=== PATIENT | female | born 1975 | race Asian ===

== ENCOUNTER 2021-08-02 19:58 | Emergency (ER) | payer BC, SELFPAY ==
--- NOTE | ~2021-08-02 | XR_ITS ---
XR chest 2V DATE: 08/02/2021 20:45 INDICATION: Generalized chest pain and palpitations for one week TECHNIQUE: PA and lateral views COMPARISON: 03/01/2017 CT pulmonary scan FINDINGS: Normal heart size. No hilar or mediastinal enlargement. No pulmonary infiltrate or consolid ation, pleural effusion or pulmonary vascular congestion or pneumothorax. Mild thoracic dextroscoliosis. IMPRESSION: No active cardiopulmonary disease Reviewed, dictated and finalized at location [facility].
[2021-08-02 20:08] VITALS: BP 162/88; PULSE 101; RESP 16; TEMP 37; O2SAT 96
--- NOTE | 2021-08-02 20:11 | ECG_ITS ---
Measurements Intervals [place] Rate: 103 P: 40 VT: 159 QRS: 7 QRSD: 97 T: 33 QT: 316 QTc: 416 Interpretive Statements SINUS TACHYCARDIA LOW QRS VOLTAGE IN PRECORDIAL LEADS [QRS DEFLECTION < 1.0 mV IN CHEST LEADS] BORDERLINE ECG NO PREVIOUS ECG AVAILABLE FOR COMPARISON Electronically Signed On 08-03-2021 11:20:36 CDT by Antoni Biggs M.D.
[2021-08-02 20:15] VITALS: BP 155/95; PULSE 100; RESP 24; O2SAT 100; O2SAT 99
[2021-08-02 20:29] LABS: Glucose Point of Care 209 mg/dl (65-105)
[2021-08-02 20:32] LABS: Basophils Absolute Auto 0.1 K/mm3 (0.0-0.1); Basophils Percent Auto 0.4 % (0.2-1.2); Eosinophils Absolute Auto 0.3 K/mm3 (0-0.3); Eosinophils Percent Auto 2.1 % (0-4.4); Hematocrit 42.6 % (37.0-47.0); Hemoglobin 13.9 g/dL (12.0-15.0); Immature Granulocyte Absolute 0.06 K/mm3 (0.00-0.031); Immature Granulocyte Percent A 0.4 % (0-0.5); Lymphocytes Percent Auto 30.8 % (18.3-44.2); Mean Corpuscular HGB Conc 32.6 g/dl (32-36); Mean Corpuscular Hemoglobin 26.8 pg (26-34); Mean Corpuscular Volume 82.2 fl (80-100); Mean Platelet Volume 10.4 fl (7.4-10.4); Monocytes Absolute Auto 0.8 K/mm3 (0.1-0.6); Monocytes Percent Auto 5.9 % (2.6-8.5); Neutrophils Absolute Auto 8.2 K/mm3 (1.3-6.7); Neutrophils Percent Auto 60.4 % (45.5-73.1); Platelet Count Result 270 k/mm3 (150-375); Red Blood Count 5.18 M/mm3 (4.2-5.4); Red Cell Distribution Width 12.6 % (11.5-14.5); White Blood Count 13.6 K/mm3 (4.5-10.0)
[2021-08-02 20:43] LABS: Prothrombin Time 12.8 Seconds (11.1-14.7)
[2021-08-02 20:44] LABS: Alanine Aminotransferase 18 U/L (6-35); Albumin Level 4.1 g/dL (3.5-5.1); Alkaline Phosphatase 78 U/L (38-126); Anion Gap 8 mmol/L (8-16); Aspartate Amino Transferase 24 U/L (14-36); Bilirubin,Total 0.3 mg/dL (0.2-1.3); Blood Urea Nitrogen 12 mg/dL (7-17); Carbon Dioxide 24 mmol/L (22-30); Chloride 104 mmol/L (98-107); Estimated CRCL calculation 127 ml/min; Estimated Glomerular Filt Rate > 60; Glucose 193 mg/dL (65-110); Lipase 100 U/L (23-300); Partial Thromboplastin Time 28.1 SECONDS (22.3-36.8); Potassium 3.7 mmol/L (3.4-5.0); Sodium 136 mmol/L (137-145)
[2021-08-02 20:54] LABS: Troponin I < 0.012 ng/mL (0.000-0.034)
[2021-08-02] MEDS: SODIUM CHLORIDE 0.9% IV 1,000 ML 999 ML IV CONT (21:36)
[2021-08-02] MEDS: LORazepam INJ (*CRX) 2 MG/ML VIAL 0.5 MG IV PUSH (21:36)
--- NOTE | 2021-08-02 21:39 | ED.GENADULT ---
HPI - General Adult General Chief complaint: Chest Pain Stated complaint: chest pain, general unwell Time Seen by Provider: 08/02/21 20:12 History of Present Illness HPI narrative: Presents ER with multiple issues. Main complaint is chest pain left side near the clavicle. Intermittent over the last couple weeks and associated with some palpitations. Pain is spontaneous and not necessarily associated with a singular activity or motion. Patient reports that she has been unmedicated for her hyperthyroidism and diabetes over the last year. Reports she is just not gone to see her doctors and is not taking her medication. She decided to start taking her glimepiride over the last week. Patient is anxious and tearful. No runny nose or sore throat or productive cough. No hemoptysis. Denies any weight loss. No new edema in the legs. Related Data Home Medications Medication Instructions Recorded Confirmed glimepiride 2 mg tablet tablet 08/02/21 metformin 500 mg tablet,extended tablet PO 08/02/21 release 24 hr Allergies Allergy/AdvReac Type Severity Reaction Status Date / Time No Known Allergies Allergy Mild Verified 08/02/21 20:10 Review of Systems Review of Systems: All systems reviewed & are unremarkable except as noted in HPI and below Constitutional: Constitutional: Denies chills and Denies fever(s) Cardiovascular: Cardiovascular: Reports chest pain, Reports rapid heart rate and Denies radiating jaw, neck or arm pain Respiratory: Respiratory: Denies cough and Denies dyspnea Gastrointestinal: Gastrointestinal: Denies abdominal pain, Denies nausea and Denies vomiting Musculoskeletal: Musculoskeletal: Denies back pain and Denies muscle cramps Neurologic: Denies headache(s), Denies focal weakness and Denies numbness PMFSH Past Medical History Medical History (Updated 08/02/21 @ 22:53 by Cezar Yan MD) Anxiety Depression Hyperthyroidism Iron deficiency Surgical History Surgical History (Updated 08/02/21 @ 21:43 by Cezar Yan MD) No pertinent past surgical history Family History Family History (Updated 03/26/17 @ 21:49 by DOCTOR UNKNOWN) Father Hypertension Family history of heart disease in male family member before age 55 Other Family history of cardiovascular disease Family history of malignant neoplasm of cervix Social History Social History Smoking status: Light tobacco smoker Second hand tobacco smoke exposure: No Alcohol intake: never Exam Narrative: GENERAL: Anxious and tearful, well-nourished, and in no acute distress. HEAD: Normocephalic, atraumatic. EYES: PERRL and EOMI. CHEST: Clear to auscultation. No respiratory distress. HEART: Regular rate and rhythm. Normal peripheral pulses. ABDOMEN: Soft, nontender, nondistended. EXTREMITIES: Normal range of motion. No edema. SKIN: Warm, dry, no rash. NEURO: Alert and oriented x3. PSYCH: Normal mood and affect. Course Course Emergency Course: Labs consistent with uncontrolled hyperthyroidism per patient history. Will discharge with her home methimazole 5 mg. Recommend she go back to her [facility]. She is requesting a name of a new PCP which we will provide. Vital Signs Vital signs: Vital Signs Temperature 98.6 F 08/02/21 20:08 Pulse Rate 101 H 08/02/21 20:08 Respiratory Rate 16 08/02/21 20:08 Blood Pressure 162/88 H 08/02/21 20:08 Pulse Oximetry 96 08/02/21 20:08 Oxygen Delivery Room Air 08/02/21 20:08 Temperature 98.6 F 08/02/21 20:08 Pulse Rate 97 08/02/21 21:43 Respiratory Rate 23 H 08/02/21 21:43 Blood Pressure 127/76 08/02/21 21:43 Pulse Oximetry 99 08/02/21 21:43 Oxygen Delivery Room Air 08/02/21 20:15 Medical Decision Making Vital Signs Vital Signs: Vital Signs Temperature 98.6 F 08/02/21 20:08 Pulse Rate 101 H 08/02/21 20:08 Respiratory Rate 16 08/02/21 20:08 Blood Pressure 162/88 H 08/02/21 20:08 Pulse Oxi
[2021-08-02 21:43] VITALS: BP 127/76; PULSE 97; RESP 23; O2SAT 99
[2021-08-02 22:47] LABS: Thyroid Stimulating Hormone Reflex < 0.015 uIU/mL (0.465-4.68)
[2021-08-02 23:08] VITALS: BP 119/68; PULSE 93; RESP 22; O2SAT 99
[2021-08-02 23:12] LABS: Free T4 Free Thyroxine Reflex 1.65 ng/dL (0.78-2.19)
[2021-08-03 00:11] LABS: Total Triiodothyronine (T3) 2.48 NG/ML (0.97-1.69)
== END 2021-08-02 23:09 | disposition home or self-care (01) ==
PROVIDERS: Emergency Provider Emergency Medicine
DX: E05.90 Thyrotoxicosis, unspecified without thyrotoxic crisis or storm (principal); F41.9 Anxiety disorder, unspecified; E11.9 Type 2 diabetes mellitus without complications; E61.1 Iron deficiency; F17.200 Nicotine dependence, unspecified, uncomplicated; Z79.84 Long term (current) use of oral hypoglycemic drugs; R00.0 Tachycardia, unspecified
CPT/HCPCS: 36415; 71046; 80053; 82948; 83690; 84439; 84443; 84480; 84484; 85025; 85610; 85730; 93005; 96361; 96374; 99284; J2060; J7030

== ENCOUNTER 2022-02-25 05:26 | Emergency (ER) | payer BC, SELFPAY ==
--- NOTE | 2022-02-25 05:42 | PC.NURSE ---
Pt ambulatory to ED with multiple complaints. Pt states her thyroid feels swollen, which happens when she gets stressed, and is concerned her thyroid medicine needs to be adjusted. She has an appointment scheduled for 03/17 but did not call to reschedule to see her PCP sooner. She also c/o sulphur burps and reflux x1 month that she has tried to manage with diet change and OTC medications without improvement. She also c/o anxiety, stress, and low energy. Pt is tearful during exam. She requests medication to help with anxiety and something to help her sleep.
[2022-02-25] MEDS: BELLADONNA ALK/PHENOB ELIX 10 ML, MAG HYDROX/ALUMINUM HYD/SIMETH 30 ML, LIDOCAINE HCL 2... PO (05:54)
--- NOTE | 2022-02-25 06:18 | ED.GENADULT ---
HPI - General Adult General Chief complaint: Unspecified Stated complaint: throat pain, thyroid swollen? Time Seen by Provider: 02/25/22 05:37 History of Present Illness HPI narrative: This is a 46-year-old female with past medical history of anxiety, GERD and hypothyroidism, who presents to the emergency department complaining of anxiety, substernal burning and throat swelling. Patient states she has had several episodes of anxiety over the past several weeks, that have recently worsened. She states she is also had some sore throat and was evaluated at an outside urgent care where she was started on steroids. She states since taking the steroids she has felt her anxiety worsen. This is accompanied by throat swelling, which she has experienced with anxiety previously. She states she was tested for COVID, flu and strep, all of which were negative. She also complains of burning substernal pain, rated 3/10, consistent with acid reflux. Related Data Home Medications Medication Instructions Recorded Confirmed glimepiride 2 mg tablet tablet 08/02/21 metformin 500 mg tablet,extended tablet PO 08/02/21 release 24 hr Allergies Allergy/AdvReac Type Severity Reaction Status Date / Time No Known Allergies Allergy Mild Verified 02/25/22 07:26 Review of Systems Review of Systems: CONSTITUTIONAL: Denies fever, chills, or sweats. EYES: Denies visual changes, redness, or discharge. ENT: Sore throat, neck swelling denies rhinorrhea, congestion, or otalgia. CARDIOVASCULAR: Denies chest pain, palpitations, or edema. RESPIRATORY: Denies cough or dyspnea. GASTROINTESTINAL: Denies abdominal pain, nausea, vomiting, or diarrhea. GENITOURINARY: Denies dysuria or hematuria. SKIN: Denies rash or itching. MUSCULOSKELETAL: Denies back pain, joint pain, or myalgia. NEUROLOGIC: Denies headache, numbness, dizziness, or weakness. PSYCHIATRIC: Anxiety denies depression. [facility] Past Medical History Medical History Anxiety Depression Hyperthyroidism Iron deficiency Surgical History Surgical History No pertinent past surgical history Family History Family History Father Hypertension Family history of heart disease in male family member before age 55 Other Family history of cardiovascular disease Family history of malignant neoplasm of cervix Social History Social History Smoking status: Light tobacco smoker Second hand tobacco smoke exposure: No Alcohol intake: never Exam Narrative: GENERAL: Well-developed, well-nourished, appears anxious HEAD: Normocephalic, atraumatic. EYES: PERRLA and EOMI. ENT: Nares clear, no rhinorrhea or epistaxis. Mucous membranes moist. Oropharynx without tonsillar hypertrophy exudate or other lesions. NECK: Bilateral, symmetrical swelling of the neck consistent with thyroid hypertrophy, Supple. No adenopathy. No carotid bruits or JVD CHEST: Clear to auscultation. No respiratory distress. No wheezes rales or rhonchi HEART: Regular rate and rhythm. No murmur heard. Normal peripheral pulses. ABDOMEN: Soft, nontender, nondistended, normal active bowel sounds. EXTREMITIES: Normal range of motion. No edema. SKIN: Warm, dry, no rash. NEURO: No focal deficits. Alert and oriented x3. PSYCH: Normal mood and affect. Course Course Emergency Course: 07:30 - TSH elevated to 34 with T4 at 1, consistent with hypothyroidism. Paged the patient's client program manager, Dr. Tello at [facility] to facilitate follow up. On reevaluation, the patient states her pain is improving after GI cocktail. 08:30 - Discussed patient with her client program manager, Dr. Tello who recommends holding the methimazole and follow-up in the outpatient setting. Dr. Tello notes the patient has a history of Grave's disease. Discu
[2022-02-25] MEDS: FAMOTIDINE 20 MG TABLET PO (06:32)
--- NOTE | 2022-02-25 06:38 | PC.NURSE ---
Discussed things pt can do at home to manage her burps and reflux, such as clear liquids x24-48 hours, BRAT diet, food diary, not eating before bed. Also educated on ways to cope with her stress such as reading a book, listening to music, and speaking with a therapist. Pt verbalizes understanding.
[2022-02-25 06:51] LABS: T4 Thyroxine 1.04 ug/dL (5.53-11.0)
[2022-02-25 07:30] VITALS: BP 134/84; PULSE 81; RESP 17; O2SAT 98
[2022-02-25 08:11] LABS: Free T4 Free Thyroxine Reflex < 0.07 ng/dL (0.78-2.19)
[2022-02-25 08:46] VITALS: BP 148/98; PULSE 85; RESP 19; O2SAT 99
[2022-02-25 08:49] VITALS: BP 122/77
== END 2022-02-25 08:50 | disposition home or self-care (01) ==
PROVIDERS: Emergency Provider Preventive Medicine Aerospace Medicine; PCP Internal Medicine
DX: F41.9 Anxiety disorder, unspecified (principal); K21.9 Gastro-esophageal reflux disease without esophagitis; E03.9 Hypothyroidism, unspecified; Z79.84 Long term (current) use of oral hypoglycemic drugs; F17.200 Nicotine dependence, unspecified, uncomplicated
CPT/HCPCS: 36415; 84436; 84439; 84443; 99283; A9270

== ENCOUNTER 2022-04-26 19:10 | Emergency (ER) | payer BC, SELFPAY ==
[2022-04-26 19:23] VITALS: BP 129/87; PULSE 112; RESP 16; TEMP 36.9; O2SAT 100
--- NOTE | 2022-04-26 20:33 | ED.SKABFB ---
HPI - Skin/Abscess/Foreign Bdy General Chief complaint: Skin/Abscess/Foreign Body Stated complaint: rash/redness/bumps to RUE Time Seen by Provider: 04/26/22 20:19 History of Present Illness HPI narrative: 46-year-old female here for evaluation of erythema and pain to her right upper extremity for the past 3 days. 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 Since then she has noticed several small pustules develop on her right upper extremity and some swelling and redness surrounding the pustules. Pustules have not drained. She presented to an urgent care this afternoon who prescribed her doxycycline for cellulitis, patient states that she took 1 pill of this about an hour prior to arrival but is concerned that the redness and swelling is still there. Denies any fevers, chills, nausea or vomiting or further systemic symptoms. Has hx of well-controlled diabetes. Related Data Home Medications Medication Instructions Recorded Confirmed glimepiride 2 mg tablet tablet 08/02/21 metformin 500 mg tablet,extended tablet PO 08/02/21 release 24 hr Allergies Allergy/AdvReac Type Severity Reaction Status Date / Time No Known Allergies Allergy Mild Verified 02/25/22 07:26 Review of Systems Review of Systems: Gen.: Denies fevers or chills Eyes: Denies eye pain or visual change ENT: Denies congestion Respiratory: Denies shortness of breath or cough CV: Denies chest pain or palpitations GI: Denies abdominal pain nausea, emesis or diarrhea denies burning, urgency, frequency or hematuria Musculoskeletal: Denies back pain or muscle pain Neuro: Denies numbness, tingling, weakness or focal weakness Skin: Reports redness and swelling to right upper extremity Except as documented, all other systems reviewed and negative PMFSH Past Medical History Medical History Anxiety Depression Hyperthyroidism Iron deficiency Surgical History Surgical History No pertinent past surgical history Family History Family History Father Hypertension Family history of heart disease in male family member before age 55 Other Family history of cardiovascular disease Family history of malignant neoplasm of cervix Social History Social History Smoking status: Light tobacco smoker Second hand tobacco smoke exposure: No Alcohol intake: never Exam Narrative: APPEARANCE: Well appearing, no pain in distress, well-nourished. Head: Normocephalic and atraumatic. EYES: PERRLA/EOMI, conjunctivae clear NOSE: No nasal drainage EARS: External ear normal in appearance THROAT: Oropharynx is clear. Mucous membranes are moist. NECK: Supple. No adenopathy, no masses. RESPIRATORY: Airway patent, respirations nonlabored. Clear to auscultation bilaterally, no rales, rhonchi, wheezing. CARDIOVASCULAR: Regular rate and rhythm without murmurs, rubs, or gallops. ABDOMINAL: Normoactive bowel sounds. Soft, nontender, nondistended. No rebound tenderness or guarding. MUSCULOSKELETAL: Extremities are warm and well-perfused. Moves all extremities well. No edema. NEURO: Normal speech. No focal neurologic deficits. SKIN: Patient has numerous small pustules to the right upper extremity with small areas of surrounding erythema and induration, no fluctuance noted PSYCHIATRIC: Normal affect/mood. Course Vital Signs Vital signs: Vital Signs Temperature 98.5 F 04/26/22 19:23 Pulse Rate 112 H 04/26/22 19:23 Respiratory Rate 16 04/26/22 19:23 Blood Pressure 129/87 04/26/22 19:23 Pulse Oximetry 100 04/26/22 19:23 Oxygen Delivery Room Air 04/26/22 19:23 Temperature 98 F
[2022-04-26 20:34] VITALS: BP 123/79; PULSE 88; RESP 18; TEMP 36.6; O2SAT 99
== END 2022-04-26 20:34 | disposition home or self-care (01) ==
PROVIDERS: Emergency Provider Physician Assistant; PCP Internal Medicine
DX: L03.113 Cellulitis of right upper limb (principal); F41.9 Anxiety disorder, unspecified; F32.A Depression, unspecified; E05.90 Thyrotoxicosis, unspecified without thyrotoxic crisis or storm
CPT/HCPCS: 99283

== ENCOUNTER 2022-09-29 12:05 | Emergency (ER) | payer BC, SELFPAY ==
--- NOTE | ~2022-09-29 | XR_ITS ---
EXAMINATION: XR chest 1V portable Exam Date/Time: 09/29/2022 16:20 CDT HISTORY: weakness Comparison: 08/02/2021. RESULT: Lines, tubes, and devices: None. Lungs and pleura: Clear. Cardiomediastinal silhouette: Stable. Other: No acute osseous or upper abdominal finding. IMPRESSION: No acute cardiopulmonary process. Reviewed, dictated and finalized at location K.
[2022-09-29 12:22] VITALS: BP 157/83; PULSE 81; RESP 18; TEMP 36.3; O2SAT 100
--- NOTE | 2022-09-29 12:29 | ECG_ITS ---
Measurements Intervals [place] Rate: 70 P: 49 MO: 198 QRS: 3 QRSD: 86 T: 34 QT: 385 QTc: 418 Interpretive Statements SINUS RHYTHM LOW QRS VOLTAGE IN PRECORDIAL LEADS [QRS DEFLECTION < 1.0 mV IN CHEST LEADS] BORDERLINE ECG COMPARED TO ECG 08/02/2021 20:17:01 HEART RATE REDUCED, NO OTHER CHANGE Electronically Signed On 09-29-2022 17:18:48 CDT by Osito Adhikari M.D.
[2022-09-29 16:07] VITALS: BP 177/99; PULSE 79; RESP 16; O2SAT 99
[2022-09-29] MEDS: LACTATED RINGERS 1,000 ML 999 ML IV CONT ×2 (16:22→17:47)
[2022-09-29 16:26] LABS: Basophils Absolute Auto 0.1 K/mm3 (0.0-0.1); Basophils Percent Auto 1.2 % (0.2-1.2); Eosinophils Absolute Auto 0.3 K/mm3 (0-0.3); Eosinophils Percent Auto 2.7 % (0-4.4); Hematocrit 43.8 % (37.0-47.0); Hemoglobin 14.2 g/dL (12.0-15.0); Immature Granulocyte Absolute 0.04 K/mm3 (0.00-0.031); Immature Granulocyte Percent A 0.3 % (0-0.5); Lymphocytes Absolute Auto 5.13 K/mm3 (0.9-3.2); Lymphocytes Percent Auto 42.5 % (18.3-44.2); Mean Corpuscular HGB Conc 32.4 g/dl (32-36); Mean Corpuscular Hemoglobin 28.1 pg (26-34); Mean Corpuscular Volume 86.6 fl (80-100); Mean Platelet Volume 10.2 fl (7.4-10.4); Monocytes Absolute Auto 0.8 K/mm3 (0.1-0.6); Monocytes Percent Auto 6.3 % (2.6-8.5); Neutrophils Absolute Auto 5.7 K/mm3 (1.3-6.7); Platelet Count Result 294 k/mm3 (150-375); Red Blood Count 5.06 M/mm3 (4.2-5.4); Red Cell Distribution Width 14.9 % (11.5-14.5); White Blood Count 12.1 K/mm3 (4.5-10.0)
[2022-09-29 16:34] LABS: Appearance Urine Cloudy (Clear); Bacteria Urine Rare /hpf; Bilirubin Urine Negative (Negative); Blood Urine Negative (Negative); Color Urine Yellow (Yellow); Glucose Urine UA Negative (Negative); Ketones Urine Trace mg/dL (Negative); Leukocyte Esterase Ur Negative LEU/UL (Negative); Nitrate Urine Negative (Negative); Non Pathogenic Casts 0-2; Protein Urine 2+ mg/dL (Negative); RBC Urine 0-2 /hpf (0-2); Specific Grav Ur 1.022 (1.001-1.035); Squamous Epithelial Cell Urine Few /hpf (Few); Urobilinogen Urine 0.2 mg/dL (<2.0); WBC Urine 0-5 /hpf; pH Urine 6.5 (5.0-9.0)
[2022-09-29 16:40] LABS: Add Urine Microscopic? YES
[2022-09-29 16:46] LABS: Alanine Aminotransferase 24 U/L (6-35); Albumin Level 4.7 g/dL (3.5-5.1); Alkaline Phosphatase 44 U/L (38-126); Anion Gap 7 mmol/L (8-16); Aspartate Amino Transferase 39 U/L (14-36); Bilirubin,Total 0.6 mg/dL (0.2-1.3); Blood Urea Nitrogen 13 mg/dL (7-17); Calcium 9.8 mg/dL (8.4-10.2); Carbon Dioxide 29 mmol/L (22-30); Chloride 98 mmol/L (98-107); Estimated CRCL calculation 81 ml/min; Estimated Glomerular Filt Rate > 60; Glucose 120 mg/dL (65-110); Lipase 201 U/L (23-300); Magnesium 2.2 mg/dL (1.6-2.3); Potassium 3.7 mmol/L (3.4-5.0); Sodium 134 mmol/L (137-145)
[2022-09-29 16:56] LABS: NT Pro B Type Natriuretic Pept < 20 pg/mL (19.9-100); Troponin I < 0.012 ng/mL (0.000-0.034)
[2022-09-29 16:57] LABS: Calcium Oxalate Crystals Urine Present /hpf
[2022-09-29 17:05] LABS: Influenza A QL RT-PCR Negative (Negative); Influenza B QL RT-PCR Negative (Negative); RSV RNA, RT-PCR Negative (Negative); SARS-CoV-2 RNA PCR Negative (Negative)
--- NOTE | 2022-09-29 17:41 | ED.GENADULT ---
HPI - General Adult General Chief complaint: Headache Stated complaint: mills/enlarged thyroid/fatigue Time Seen by Provider: 09/29/22 15:53 History of Present Illness HPI narrative: Patient is a 47-year-old female with a history of diabetes, hyperthyroidism presenting with multiple complaints. She states that she has been feeling generally weak as well as intermittently lightheaded. States that she is concerned that her thyroid medications are not appropriately dosed as her dental laboratory supervisor has made changes and has not followed up with her. She states that she had an ultrasound and blood work done several months ago and then her dental laboratory supervisor lost all of that and told her to come back in 3 months. She denies any pain to me. No chest pain, shortness of breath, cough. States that she feels like her thyroid is large and sometimes makes her choke. Denies further complaints. Related Data Home Medications Medication Instructions Recorded Confirmed glimepiride 2 mg tablet tablet 08/02/21 metformin 500 mg tablet,extended tablet PO 08/02/21 release 24 hr dulaglutide 1.5 mg/0.5 mL mg subcut 09/29/22 subcutaneous pen injector (Trulicity) gabapentin 300 mg capsule mg 09/29/22 methimazole 5 mg tablet mg 09/29/22 Allergies Allergy/AdvReac Type Severity Reaction Status Date / Time No Known Allergies Allergy Mild Verified 09/29/22 16:09 Review of Systems Review of Systems: All systems reviewed & are unremarkable except as noted in HPI and below PMFSH Past Medical History Medical History Anxiety Depression Hyperthyroidism Iron deficiency Surgical History Surgical History No pertinent past surgical history Family History Family History Father Hypertension Family history of heart disease in male family member before age 55 Other Family history of cardiovascular disease Family history of malignant neoplasm of cervix Social History Social History Smoking status: Light tobacco smoker Second hand tobacco smoke exposure: No Alcohol intake: never Exam Narrative: GENERAL: Well-appearing, in no acute distress, pleasant and cooperative HEAD: Normocephalic, atraumatic. EYES: PERRLA and EOMI. ENT: Nares clear, no rhinorrhea or epistaxis. Mucous membranes moist. NECK: Supple. CHEST: Clear to auscultation. No respiratory distress. HEART: Regular rate and rhythm. Normal peripheral pulses. ABDOMEN: Soft, nontender, nondistended EXTREMITIES: Normal range of motion. No edema. SKIN: Warm, dry, no rash. NEURO: No focal deficits. Alert and oriented x3. PSYCH: Normal mood and affect. Course Vital Signs Vital signs: Vital Signs Temperature 97.3 F L 09/29/22 12:22 Pulse Rate 81 09/29/22 12:22 Respiratory Rate 18 09/29/22 12:22 Blood Pressure 157/83 H 09/29/22 12:22 Pulse Oximetry 100 09/29/22 12:22 Oxygen Delivery Room Air 09/29/22 12:22 Temperature 97.3 F L 09/29/22 12:22 Pulse Rate 68 09/29/22 20:54 Respiratory Rate 18 09/29/22 20:54 Blood Pressure 164/96 H 09/29/22 20:54 Pulse Oximetry 98 09/29/22 20:54 Oxygen Delivery Room Air 09/29/22 12:22 Medical Decision Making [facility] Narrative Medical decision making narrative: Patient is a 47-year-old female presenting with generalized weakness and lightheadedness. Patient is hypertensive, his vitals are within normal limits. Exam remarkable for the above. EKG per my interpretation shows normal sinus rhythm, normal axis, no ST elevations or depressions. Blood work remarkable for TSH greater than 40, undetectable T4. Troponins are undetectable. Patient received 2 L of fluids and states that she is feeling improved. Her orthostatic vitals are negative. I discussed the findings wit
[2022-09-29 17:47] VITALS: BP 137/98; PULSE 69; RESP 17; O2SAT 99
[2022-09-29 17:52] VITALS: BP 137/98; BP 179/118; PULSE 71; PULSE 74
[2022-09-29 17:53] VITALS: BP 204/109; PULSE 88
[2022-09-29 19:16] LABS: Free T4 Free Thyroxine Reflex < 0.07 ng/dL (0.78-2.19)
--- NOTE | 2022-09-29 19:24 | PC.NURSE ---
This RN assumed care of patient. Pt report was taken from VIRAL Mckenna.
[2022-09-29 20:33] LABS: Troponin I < 0.012 ng/mL (0.000-0.034)
[2022-09-29 20:54] VITALS: BP 164/96; PULSE 68; RESP 18; O2SAT 98
== END 2022-09-29 20:54 | disposition home or self-care (01) ==
PROVIDERS: Emergency Provider Emergency Medicine; PCP Internal Medicine
DX: R53.1 Weakness (principal); R42 Dizziness and giddiness; E03.9 Hypothyroidism, unspecified; Z20.822 Contact with and (suspected) exposure to COVID-19; E05.90 Thyrotoxicosis, unspecified without thyrotoxic crisis or storm; E11.9 Type 2 diabetes mellitus without complications; E61.1 Iron deficiency; F17.200 Nicotine dependence, unspecified, uncomplicated; Z79.84 Long term (current) use of oral hypoglycemic drugs; Z79.85 Long-term (current) use of injectable non-insulin antidiabetic drugs; R94.31 Abnormal electrocardiogram [ECG] [EKG]
CPT/HCPCS: 36415; 71045; 80053; 81001; 81025; 83690; 83735; 83880; 84439; 84443; 84484; 85025; 87637; 93005; 96360; 96361; 99284; J7120